=== PATIENT | female | born 1990 | race Caucasian/White ===

== ENCOUNTER 2021-03-03 11:34 | Emergency (ER) | payer OTHER ==
[~2021-03-03] VITALS: Ht 180.3 cm; Wt 172.4 kg
[2021-03-03 11:35] VITALS: BP 173/102
[2021-03-03] MEDS ORDERED: NORCO5 PO (11:54)
[2021-03-03] MEDS ORDERED: CLEOCIN HCL300 MG PO (11:54)
[2021-03-03] MEDS ORDERED: IBUPROFEN 800800 M1 PO (11:54)
== END 2021-03-03 12:06 | disposition home or self-care (01) ==
LOC: M.ERS 11:34
DX: K04.7 Periapical abscess without sinus (principal); E11.9 Type 2 diabetes mellitus without complications; E66.01 Morbid (severe) obesity due to excess calories; F17.210 Nicotine dependence, cigarettes, uncomplicated; Z68.43 Body mass index [BMI] 50.0-59.9, adult; Z88.1 Allergy status to other antibiotic agents; Z90.49 Acquired absence of other specified parts of digestive tract